=== PATIENT | male | born 1960 | race African-American/Black ===

== ENCOUNTER 2020-04-07 13:55 | Outpatient (CLI) | payer OTHER ==
--- NOTE | 2020-04-07 15:18 | MRI ---
MRI lumbar spine noncontrast HISTORY: Low back pain. Radiculopathy. FINDINGS: Vertebral body heights are maintained. There is desiccation of the lowest 4 intervertebral discs. Conus medullaris has normal appearance. Edematous bone marrow signal involves the left L4 pedicle and extends throughout the right L4 and L5 pedicles into the adjacent portions of the vertebral bodies and posterior elements. T12-L1, L1-2: Mild osteophytosis. Central canal and neural foramina are patent. L2-3: Mild disc space narrowing. Mild posterior disc bulge with left far lateral disc protrusion that includes an annular tear and extends into the neural foramen, compressing the left L2 nerve root. There is osteophytosis of the facets. Thecal sac and right neural foramen are patent. L3-4: Mild posterior disc bulge. Far right lateral disc protrusion, injuring the right neural foramen and compressing the right L3 nerve root. Posterior component of the disc bulge and circumferential degenerative changes result in mild stenosis of the central canal and moderate stenosis of the left n eural foramen. L4-5: Disc space narrowing. Prominent posterior and bilateral bulge/protrusion of the intervertebral discs. Prominent posterior degenerative changes. Severe stenosis of the central canal. Severe right and moderate left foraminal stenoses. L5-S1: Disc space narrowing. Minimal degenerative retrolisthesis. Prominent posterior disc bulge/prot rusion, compressing the ventral aspect of the thecal sac and origin of each S1 nerve root. No significant thecal sac stenosis, however. Moderate right and severe left foraminal stenoses. IMPRESSION : Prominent multilevel degenerative changes throughout the lumbar spine as detailed above. Disc protrus ions most severely compress the right L3 and left L2 nerve root. Clinical correlation regarding these dermatomes is required. Stress reaction bone marrow edema involving lower posterior elements, as detailed above, more promine nt on the left at the L4 and L5 levels.
--- NOTE | 2020-04-07 16:08 | MRI ---
MRI cervical spine noncontrast: 04/07/2020 HISTORY: 59-year-old male with cervical radiculopathy M 54.12 Dr. Norris discussed the findings by telephone with Dr. Rusty Mishra at 4:05 PM 04/07/2020 COMPARISON: None FINDINGS: There is mild reversal of curvature. No major subluxation. Cervical spinal canal is congenitally smal l in caliber due to developmentally short pedicles. This is exacerbated by cervical spondylosis as described below. There are disc herniations at multiple levels. Contiguous with these disc herniation s, and inseparable from them, there is midline vertically oriented material that has hypointense T2 signal, in the anterior epidural space from the C 2-3 level through mid C5 level, probably representi ng calcified posterior longitudinal ligament. Alternatively, the other possibility is superiorly and inferiorly migrated extruded disc material. Calcified posterior longitudinal ligament is favored. The combination of that and the disc herniations, result in severe central spinal canal stenosis at some levels described below. Disc space narrowing is mild at C3-4, moderate to severe at C4-5, mil d to moderate at C5-6, and mild to moderate at C6-7. There are Modic type I endplate marrow changes at C4-5. C1-2: No central spinal canal stenosis. C2-3: Mild ligamentum flavum thickening, small central disc protrusion, exacerbating the developmenta lly small caliber spinal canal. Mild to moderate left neural foraminal stenosis. No significant right neural foraminal stenosis. No high-grade facet DJD. C3: Calcified posterior longitudinal ligament significantly indents the spinal cord, flattening in th e AP dimension, and causing severe central spinal canal stenosis. C3-4: Broad-based disc herniation or disc/osteophyte complex, plus superimposed focal prominent centr al disc herniation, markedly compresses the spinal cord, flattening in the AP dimension. Severe central spinal canal stenosis. Small to moderate-sized bilateral uncinate process osteophytes. Modera te to severe bilateral neural foraminal stenosis. No high-grade facet DJD. C4: Anterior epidural material indents and markedly flattens the AP dimension of the spinal cord, exa cerbating the developmentally small caliber spinal canal. Moderate size bilateral uncinate process osteophytes. Severe bilateral neural foraminal stenosis. No high-grade facet DJD. C4-5: Combination of retrolisthesis of C4 on C5 moderate sized central and bilateral paracentral disc herniation, causing severe cord compression, severely flattening the cord in the AP dimension, causing extremely severe central spinal canal stenosis with complete obliteration of CSF signal, and causing diffuse intramedullary T2 hyperintense signal abnormality which probably represents myelomalacia. Moderately large bilateral uncinate process osteophytes cause severe bilateral neural foraminal steno sis. No high-grade facet DJD. C5-6: Broad-based disc/osteophyte complex or broad-based disc herniation causes moderate central spin al canal stenosis. Large bilateral uncinate process osteophytes, left greater than right, causing very severe bilateral neural foraminal stenosis. C6-7: Broad-based prominent disc herniation exacerbates the developmentally small caliber spinal miranda l, causing moderate to severe central spinal canal stenosis. Moderate size bilateral uncinate process osteophytes cause severe bilateral neural foraminal stenosis. Normal bilateral facet joints. C7-T1: No central spinal canal stenosis. Moderate bilateral neural foraminal stenosis. Mild to modera te bilateral neural foraminal stenosis. IMPRESSION: 1.) Cervical spondylosis (consisting of multilevel degenerative disc disease) together with what appe ars to be calcified posterior longitudinal ligament (alternatively superiorly and inferiorly migrating extruded disc material) exacerbating a developmentally small caliber spinal canal, causing multilevel severe central spinal canal stenosis with high-grade chronic cord compressions, and multilevel severe bilateral neural foraminal stenosis impinging on bilateral exiting nerve roots. 2) the worst level is at C4-5, where there is extremely severe central spinal canal stenosis and drake re cord compression, causing high-grade myelomalacia.
== END 2020-04-07 13:56 | disposition home or self-care (01) ==
LOC: TBSIIMAG 13:55
PROVIDERS: ATTEND Specialist
DX: M51.16 Intervertebral disc disorders with radiculopathy, lumbar region (principal); M48.061 Spinal stenosis, lumbar region without neurogenic claudication; M47.22 Other spondylosis with radiculopathy, cervical region; M48.02 Spinal stenosis, cervical region; M50.11 Cervical disc disorder with radiculopathy, high cervical region; R60.0 Localized edema
CPT/HCPCS: 72141; 72148

== ENCOUNTER 2020-08-03 12:14 | Outpatient (CLI) | payer OTHER ==
--- NOTE | 2020-08-03 15:43 | RAD ---
CERVICAL SPINE SERIES: 08/03/20 HISTORY: Neck pain. Vertebral bodies are normal in height. There is very mild disc narrowing at C3-4. More pronounced dis c narrowing at C4-5 and mild disc narrowing at C5-6 and C6-7. Facets are in normal alignment. IMPRESSION: Moderate arthritic changes of the spine. POS: JIMMY
== END 2020-08-03 12:15 | disposition home or self-care (01) ==
LOC: BICRAD 12:14
PROVIDERS: ATTEND Family Medicine
DX: M47.22 Other spondylosis with radiculopathy, cervical region (principal)
CPT/HCPCS: 72040

== ENCOUNTER 2021-10-31 09:19 | Outpatient (CLI) | payer BC ==
[2021-10-31 10:32] LABS: Hemoglobin 14.7 g/dL (13.5-17.5); Mean Corpuscular HGB CONC 34.3 g/dL (32.0-36.0); Mean Corpuscular Hemoglobin 31.5 pg (27.0-33.0); Mean Corpuscular Volume 91.8 fl (81.2-95.1); Mean Platelet Volume 9.9 fl (7.4-10.4); Platelet Count 233 10x3/uL (150-450); RBC Distribution Width 12.7 % (11.5-14.5); Red Blood Cell (RBC) Count 4.66 10x6/uL (4.32-5.72); White Blood Cell (WBC) Count 8.1 10x3/uL (3.5-10.5)
[2021-10-31 10:45] LABS: Anion Gap 12 mmol/L (10-20); BUN (Urea Nitrogen) 13 mg/dL (8.4-25.7); Calc. Creatinine Clearance 0 mL/min (70-130); Calcium 9.3 mg/dL (7.8-10.44); Carbon Dioxide 23 mmol/L (22-29); Chloride 108 mmol/L (98-107); Glucose 96 mg/dL (70-105); Potassium 3.7 mmol/L (3.5-5.1); Sodium 139 mmol/L (136-145)
[2021-11-01 12:22] LABS: SARS-CoV-2 PCR by NAA Not Detected (NotDetected)
== END 2021-10-31 09:20 | disposition home or self-care (01) ==
LOC: LABBT 09:19
PROVIDERS: ATTEND Neurological Surgery
DX: Z01.818 Encounter for other preprocedural examination (principal); M48.061 Spinal stenosis, lumbar region without neurogenic claudication; Z20.822 Contact with and (suspected) exposure to COVID-19
CPT/HCPCS: 80048; 85027; 93005; 93010; U0003; U0005

== ENCOUNTER 2021-11-05 06:05 | Observation (INO) | payer BC ==
[2021-10-31 12:14] VITALS: BMI 28.7
[2021-11-05] MEDS ORDERED: fentaNYL Citrate/PF 100 MCG/2 ML SYRINGE ONE (06:45)
[2021-11-05] MEDS ORDERED: Lidocaine 2% Jelly 5 ML TUBE ONE (06:45)
[2021-11-05] MEDS ORDERED: ceFAZolin (BATCH) 2 GM/100 ML BAG ONE (07:53)
[2021-11-05] MEDS ORDERED: Glycopyrrolate 0.2 MG/ML 5 ML SYRINGE ONE (08:17)
[2021-11-05] MEDS ORDERED: PHENYLEPHRINE-NS 100 MCG/ML 10 ML SYRINGE ONE (08:17)
[2021-11-05] MEDS ORDERED: PROPOFOL 200 MG/20 ML VIAL ONE (08:17)
[2021-11-05] MEDS ORDERED: Dexamethasone 20 MG/5 ML VIAL ONE (08:17)
[2021-11-05] MEDS ORDERED: Lidocaine 1% PF 5 ML VIAL ONE (08:17)
[2021-11-05] MEDS ORDERED: Ondansetron PF 4 MG/2 ML Vial ONE (08:17)
[2021-11-05] MEDS ORDERED: Promethazine HCl 25 MG/ML VIAL IVPB PRN (09:45)
[2021-11-05] MEDS ORDERED: Ondansetron HCl/PF 4 MG/2 ML Vial IVP PRN (09:45)
[2021-11-05] MEDS ORDERED: HYDROmorphone 2 MG/ML VIAL SLOW IVP PRN (09:45)
[2021-11-05] MEDS ORDERED: Promethazine HCl 25 MG/ML VIAL IM PRN ×2 (09:45→13:30)
[2021-11-05] MEDS ORDERED: Fentanyl 250 MCG/5 ML VIAL ONE (09:54)
[2021-11-05] MEDS ORDERED: HYDROmorphone 0.5 MG/0.5 ML SYRINGE ONE ×3 (09:54→10:28)
[2021-11-05] MEDS ORDERED: Tamsulosin HCl 0.4 MG CAP ONE (10:03)
[2021-11-05] MEDS ORDERED: Cyclobenzaprine 10 MG TAB ONE (11:04)
[2021-11-05] MEDS ORDERED: Morphine 4 MG/ML VIAL SLOW IVP PRN (13:30)
[2021-11-05] MEDS ORDERED: Ondansetron PF 4 MG/2 ML Vial IM PRN (13:30)
[2021-11-05] MEDS ORDERED: Acetaminophen/Codeine 30-300mg Tablet PO PRN (13:30)
[2021-11-05] MEDS ORDERED: diphenhydrAMINE 25 MG CAP PO PRN (13:30)
[2021-11-05] MEDS ORDERED: diphenhydrAMINE 50 MG/ML VIAL IVP PRN (13:30)
[2021-11-05] MEDS ORDERED: Milk Of Magnesia 30 ML UDCUP PO PRN (13:30)
[2021-11-05] MEDS ORDERED: Morphine 2 MG/ML VIAL SLOW IVP PRN (13:30)
[2021-11-05] MEDS ORDERED: Promethazine 25 MG TAB PO PRN (13:30)
[2021-11-05] MEDS ORDERED: Mag-Al 1200 mg/1200 mg/30 ML UDCUP PO PRN (13:30)
[2021-11-05] MEDS ORDERED: Promethazine HCl 12.5 MG SUPP PR PRN (13:30)
[2021-11-05] MEDS ORDERED: traMADol HCl 50 MG TAB PO PRN ×2 (13:30)
[2021-11-05] MEDS ORDERED: Cyclobenzaprine 10 MG TAB PO PRN (13:30)
[2021-11-05] MEDS: Acetaminophen/Codeine 30-300mg Tablet PO PRN ×2 (13:59→21:09)
[2021-11-05] MEDS: ceFAZolin (BATCH) 2 GM in Premix Bag 1 BAG IVPB SCH ×2 (16:32→23:57)
[2021-11-05] MEDS: Sodium Chloride 0.9% 1,000 ML IV SCH ×2 (18:31→20:31)
[2021-11-06] MEDS: Acetaminophen/Codeine 30-300mg Tablet PO PRN ×2 (04:21→12:33)
[2021-11-06] MEDS ORDERED: Tamsulosin HCl 0.4 MG CAP PO SCH (06:00)
[2021-11-06] MEDS: ceFAZolin (BATCH) 2 GM in Premix Bag 1 BAG IVPB SCH (12:24)
[2021-11-06 12:33] VITALS: BP 125/78; TEMP 98.3
== END 2021-11-06 12:48 | disposition home or self-care (01) ==
LOC: SDC 06:05 → MSONC 11:27 → SDC 12:54 → MSONC 12:54
PROVIDERS: ADMIT Neurological Surgery; ATTEND Neurological Surgery
PROC: 01NB0ZZ Release Lumbar Nerve, Open Approach (ICD-10-PCS; principal; 2021-11-05)
DX: M48.062 Spinal stenosis, lumbar region with neurogenic claudication (principal); M48.07 Spinal stenosis, lumbosacral region; Z98.1 Arthrodesis status
CPT/HCPCS: 76000; 96374; 96376; C1713; G0378; J0690; J1100; J1170; J2405; J2704; J3010; J3370; J7050; J7620

== ENCOUNTER 2021-11-21 10:44 | Outpatient (CLI) | payer BC | END 2021-11-21 10:45 | disposition home or self-care (01) | LOC: TBSIIMAG 10:44 | PROVIDERS: ATTEND Physician Assistant | DX: M48.02 Spinal stenosis, cervical region (principal); M47.812 Spondylosis without myelopathy or radiculopathy, cervical region; Z98.890 Other specified postprocedural states | CPT/HCPCS: 72040 ==